=== PATIENT | male | born 1995 | race African-American/Black ===

== ENCOUNTER 2021-02-12 22:55 | Emergency (ER) | payer SELFPAY ==
[2021-02-12] MEDS ORDERED: Lidocaine Viscous Sol 2% 15 ml UD Cup ONE (23:58)
[2021-02-12] MEDS ORDERED: Mag-Al Plus 1200 MG/1200 MG/120 MG/30 ML UDCUP ONE (23:58)
== END 2021-02-13 02:50 | disposition home or self-care (01) ==
LOC: CSHERS 22:55
DX: F45.8 Other somatoform disorders (principal)
CPT/HCPCS: 70490